=== PATIENT | female | born 1985 | race American Indian/Alaskan Native ===

== ENCOUNTER 2018-12-28 15:24 | Outpatient (CLI) | payer OTHER ==
--- NOTE | 2018-12-28 20:29 | Ultrasound Report ---
PROCEDURE: US OB BPP WO NON-STRESS HISTORY: bpp FINDINGS: Real-time ultrasound of the gravid uterus was performed. Biophysical profile was 8 of 8 Amniotic fluid index is 8.3 cm which is normal. The fetus lies in cephalic lie. cardiac activity is present at 150 beats per minute. IMPRESSION: Biophysical profile 8 of 8 Amniotic fluid index 8.3 cm This document is electronically signed by Rahat Chavez MD., Dec 28 2018 08:27:06 PM ET
--- NOTE | 2018-12-28 20:29 | Ultrasound Report ---
PROCEDURE: US OB LIMITED HISTORY: JUAN PABLO FINDINGS: Real-time ultrasound of the gravid uterus was performed. Biophysical profile was 8 of 8 Amniotic fluid index is 8.3 cm which is normal. The fetus lies in cephalic lie. cardiac activity is present at 150 beats per minute. IMPRESSION: Biophysical profile 8 of 8 Amniotic fluid index 8.3 cm . This document is electronically signed by Rahat Chavez MD., Dec 28 2018 08:27:25 PM ET
== END 2018-12-28 19:54 | disposition home or self-care (01) ==
LOC: TRG 15:24
PROVIDERS: ATTEND Obstetrics & Gynecology
DX: O47.1 False labor at or after 37 completed weeks of gestation (principal); Z3A.39 39 weeks gestation of pregnancy
CPT/HCPCS: 59025; 76815; 76819

== ENCOUNTER 2018-12-29 09:13 | Inpatient (IN) | payer OTHER ==
[2018-12-29] MEDS ORDERED: LACTATED RINGERS 2,000 ML ONE (10:07)
[2018-12-29] MEDS ORDERED: REGLAN IV SCH (10:33)
[2018-12-29] MEDS ORDERED: PEPCID IV SCH (10:33)
[2018-12-29] MEDS ORDERED: BICITRA PO SCH (10:33)
--- NOTE | 2018-12-29 10:42 | History and Physical Report ---
History of Present Illness Date of examination: 12/29/18 Date of admission: 12/29/18 09:13 Chief complaint: scheduled repeat History of present illness: 33 yo at 39+5 weeks here for repeat . OB history include UTI treated in this organism E. Coli. hx of anemia on iron. sickle cell trait. GBS postive. Glucose intolerance diagnosed. Past History Past Medical History: no pertinent history Past Surgical History: section (x1) Family/Genetic History: diabetes, hypertension Social history: single. denies: smoking, alcohol abuse, prescription drug abuse - Obstetrical History Expected Date of Delivery: 12/31/18 Actual Gestation: 39 Week(s) 5 Day(s) : 3 Para: 2 Hx # Term Pregnancies: 2 Number of Pregnancies: 0 Spontaneous Abortions: 0 Induced : 0 Number of Living Children: 2 Medications and Allergies Allergies Allergy/AdvReac Type Severity Reaction Status Date / Time No Known Allergies Allergy Unverified 11/19/18 09:00 Active Meds: Active Medications Citric Acid/Sodium Citrate (Bicitra) 30 ml PO ONCE ONE Stop: 12/29/18 10:34 Famotidine (Pepcid) 20 mg IV ONCE ONE Stop: 12/29/18 10:34 Cefazolin Sodium 3 gm/ Sodium (Chloride) 100 mls @ 100 mls/30 min IV PREOP NR; Protocol Oxytocin/Sodium Chloride (Pitocin/Ns 20 Unit/1000ml Drip) 20 units in 1,000 mls @ 0 mls/hr IV TITR ANDREY Lactated Ringer's (Lactated Ringers) 1,000 mls @ 2,250 mls/hr IV PREOP ANDREY Stop: 12/30/18 11:27 Metoclopramide HCl (Reglan) 10 mg IV ONCE ONE Stop: 12/29/18 10:34 Review of Systems All systems: negative - Vital Signs Vital signs: Vital Signs Pulse BP 99 H 118/55 12/29/18 09:44 12/29/18 09:44 Temp Pulse Resp BP Pulse Ox 93 H 105/51 12/29/18 10:14 12/29/18 10:14 - Physical Exam Breasts: Positive: normal Cardiovascular: Regular rate, Normal S1 Lungs: Positive: Clear to auscultation, Normal air movement Abdomen: Positive: normal appearance, soft, normal bowel sounds. Negative: distention, tenderness, guarding Genitourinary (Female): Positive: normal external genitalia, normal perenium Vagina: Positive: normal moisture Uterus: Positive: normal size, enlarged Anus/Rectum: Positive: normal perianal skin Extremities: Positive: normal Deep Tendon Reflex Grade: Normal +2 - Obstetrical FHR: category 1 Cervical Dilatation: 1 Results All other labs normal. Assessment and Plan A/P IUP 39+ weeks Previouis csec x 1 GBS + Peds notified of findings on US ( assess for VSD) r/b/a of repeat csec reviewed with patient including bleeding, infection, damage to pelvic and non pelvic organs risk of blood transfusion, risk of hysterectomy and Patient verbalized and signed consents and will proceed with repeat csec
[2018-12-29] MEDS ORDERED: ceFAZolin 3 GM in NACL 0.9% 100 ML IV NR (10:45)
[2018-12-29] MEDS ORDERED: PITOCin/NS 20 UNIT/1000ML DRIP 20 UNITS/1,000 ML BAG IV SCH ×2 (11:00→14:00)
--- NOTE | 2018-12-29 11:19 | Anesthesia Day of Surgery ---
Anesthesia Day of Surgery - Day of Surgery Patient Examined: Yes Patient H&P Reviewed: Yes Patient is NPO: Yes Beta Blockers: No Cardiac Clearance: No Pulmonary Clearance: No Kiran's Test: N/A
--- NOTE | 2018-12-29 11:19 | Anesthesia Consultation ---
Anesthesia Consult and Med Hx Date of service: 12/29/18 - Airway Anesthetic Teeth Evaluation: Good ROM Head & Neck: Adequate Mental/Hyoid Distance: Adequate Mallampati Class: Class II Intubation Access Assessment: Probably Good - Pulmonary Exam CTA: Yes - Cardiac Exam Cardiac Exam: RRR - Pre-Operative Health Status ASA Pre-Surgery Classification: ASA2 Proposed Anesthetic Plan: Spinal - Pulmonary Hx Asthma: No - Cardiovascular System Hx Hypertension: No - Central Nervous System Hx Seizures: No Hx Psychiatric Problems: No - Endocrine Hx Renal Disease: No Hx Hypothyroidism: No Hx Hyperthyroidism: No - Hematic Hx Anemia: No Hx Sickle Cell Disease: No - Other Systems Hx Alcohol Use: No
[2018-12-29 11:27] LABS: Basophils % (Auto) 0.3 % (0.0-1.8); Eosinophils % (Auto) 0.6 % (0.0-4.3); Hemoglobin 10.6 gm/dl (10.1-14.3); Lymphocytes # (Auto) 1.7 K/mm3 (1.2-5.4); Mean Corpuscular HGB Conc 33 % (30-34); Mean Corpuscular Volume 79 fl (79-97); Monocytes # (Auto) 0.9 K/mm3 (0.0-0.8); Monocytes % (Auto) 11.4 % (0.0-7.3); Platelet Count 305 K/mm3 (140-440); Red Blood Count 4.05 M/mm3 (3.65-5.03); Red Cell Distribution Width 17.1 % (13.2-15.2)
[2018-12-29] MEDS: LACTATED RINGERS 1,000 ML IV SCH ×2 (11:30→11:32)
[2018-12-29] MEDS ORDERED: SUBLIMAZE ONE (12:06)
[2018-12-29] MEDS ORDERED: ZOFRAN ONE (12:22)
[2018-12-29] MEDS ORDERED: WATER FOR IRRIG STERILE IR ONE (12:30)
[2018-12-29] MEDS ORDERED: NACL 0.9% IR ONE (12:30)
[2018-12-29] MEDS ORDERED: BENADRYL ONE (13:17)
[2018-12-29] MEDS ORDERED: LACTATED RINGERS 1,000 ML ONE (13:17)
[2018-12-29] MEDS ORDERED: ANUCORT-HC PR PRN (13:42)
[2018-12-29] MEDS ORDERED: NARCAN 0.4 MG/1 ML IV PRN ×2 (13:42→13:45)
[2018-12-29] MEDS ORDERED: TORADOL IV PRN (13:42)
[2018-12-29] MEDS ORDERED: PHENERGAN PR PRN ×2 (13:42→13:45)
[2018-12-29] MEDS ORDERED: LANSINOH TP PRN (13:42)
[2018-12-29] MEDS ORDERED: TUCKS PAD TP PRN (13:42)
[2018-12-29] MEDS ORDERED: NORCO 5/325 PO PRN (13:42)
[2018-12-29] MEDS ORDERED: SENOKOT PO PRN (13:42)
[2018-12-29] MEDS ORDERED: MILK OF MAGNESIA PO PRN (13:42)
[2018-12-29] MEDS ORDERED: TYLENOL PO PRN (13:42)
[2018-12-29] MEDS ORDERED: MORPHINE IV PRN (13:42)
[2018-12-29] MEDS ORDERED: ZOFRAN IV PRN ×2 (13:42→13:45)
[2018-12-29] MEDS ORDERED: PHENERGAN PO PRN (13:45)
--- NOTE | 2018-12-29 13:45 | Post Anesthesia Evaluation ---
- Post Anesthesia Evaluation Patient Participated: Yes Airway Patent: Yes Stable Respiratory Function: Yes Nausea/Vomiting: No Temp > 96.8F: Yes Pain Manageable: Yes Adequeate Hydration: Yes Anesthesia Complications: No Block Receding Appropriately: Yes Patient on Ventilator: No
--- NOTE | 2018-12-29 13:48 | Procedure Note ---
OB Delivery Note - Delivery Date of Delivery: 12/29/18 Surgeon: MALLORIE DAY Estimated blood loss: other (700cc) - Section Preop diagnosis: repeat Postop diagnosis: same section procedure: section Disposition: PACU Complications: none Narrative: see op note - Infant A at 1 minute: 8 at 5 minutes: 9 Gender: Female (8 pounds 12 oz)
--- NOTE | 2018-12-29 13:48 | Operative Report ---
Operative Report Operative Report: Date: 12/29/18 PREOPERATIVE DIAGNOSES: 1. Intrauterine at 39 +5 weeks. 2. History of previous section x1. The patient desires a repeat section. POSTOPERATIVE DIAGNOSES: 1. Intrauterine at 39 weeks. 2. History of previous section x1. The patient desires a repeat section. PROCEDURE PERFORMED: Repeat section ANESTHESIA: Spinal. SURGEON: Dr. Rosie Mariscal MD ESTIMATED BLOOD LOSS: 700 mL. COMPLICATIONS: None. FINDINGS: Female in cephalic presentation with anteflexed head, Apgars were 8 at 1 minute and 9 at 5 minutes, , and weight 8 pounds 12 ounces. Normal uterus, tubes, and ovaries were noted. INDICATIONS: The patient is a 33-year-old 3, para 2 female, who presented to repeat section at term. The patient has a history of 1 previous sections and she desires a repeat section, additionally she desires permanent fertilization. The procedure was described to the patient in detail including possible risks of bleeding, infection, injury to surrounding organs, and the possible need for further surgery and informed consent was obtained. PROCEDURE NOTE: The patient was taken to the operating room where spinal anesthesia was administered without difficulty. The patient was prepped and draped in the usual sterile fashion in the dorsal supine position with a leftward tilt. A Pfannenstiel skin incision was made with the scalpel and carried through to the underlying layer of fascia using the Bovie. The fascia was incised in the midline and extended laterally using Wayne scissors. Daniel clamps were used to elevate the superior aspect of the fascial incision, which was elevated, and the underlying rectus muscles were dissected off bluntly and using Wayne scissors. Attention was then turned to the inferior aspect of the fascial incision, which in similar fashion was grasped with Daniel clamps, elevated, and the underlying rectus muscles were dissected off bluntly and using the Bovie. The rectus muscles were dissected in the midline. The peritoneum was identified and entered using Metzenbaum scissors; this incision was extended superiorly and inferiorly with good visualization of the bladder. The bladder blade was inserted. The vesicouterine peritoneum was identified and entered sharply using Metzenbaum scissors. This incision was extended laterally and the bladder flap was created digitally. The bladder blade was reinserted. The lower uterine segment was incised in a transverse fashion using the scalpel and extended using bandage scissors as well as manual traction. Clear fluid was noted. The was subsequently delivered using a Destinee vacuum due to anteflexed head and difficulty in delivering the 's head without the Destinee. The nose and mouth were bulb suctioned. The cord was clamped and cut. The was subsequently handed to the awaiting nursery nurse. The placenta was delivered spontaneously intact with a three-vessel cord noted. The uterus was exteriorized and cleared of all clots and debris. The uterine incision was repaired in 2 layers using 0 chromic sutures. Hemostasis was visualized., surgicell, tissel used for excellent hemostasis.. The uterus was returned to the abdomen, . The uterine incision was reexamined and it was noted to be hemostatic. The pelvis was copiously irrigated. The rectus muscles were reapproximated in the midline using 3-0 Vicryl. The fascia was closed with 0 Vicryl suture, the subcutaneous layer was closed with 3-0 plain gut, and the skin was closed with Charlie needle. . Sponge, lap, and instrument counts were correct x2. The patient was stable at the completion of the procedure and was subsequently transferred to the recovery room in stable condition.
[2018-12-29] MEDS ORDERED: SODIUM CHLORIDE FLUSH SYRINGE 10 ML IV SCH ×2 (14:00)
[2018-12-29] MEDS ORDERED: MORPHINE ONE (14:54)
[2018-12-29] MEDS: D5LR 1,000 ML IV SCH ×2 (15:45→22:06)
[2018-12-29] MEDS: TORADOL IV PRN ×2 (16:02→22:01)
[2018-12-29] MEDS: MORPHINE IV PRN (20:59)
[2018-12-30 00:58] LABS: Hematocrit 29.2 % (30.3-42.9); Hemoglobin 9.8 gm/dl (10.1-14.3)
[2018-12-30] MEDS: MORPHINE IV PRN (02:06)
[2018-12-30] MEDS: TORADOL IV PRN ×2 (04:10→15:26)
[2018-12-30] MEDS ORDERED: BOOSTRIX IM ONE (06:00)
[2018-12-30] MEDS: PERCOCET 5/325 PO PRN ×3 (06:21→20:07)
[2018-12-30] MEDS: D5LR 1,000 ML IV SCH (07:35)
--- NOTE | 2018-12-30 08:44 | Progress Note ---
Assessment and Plan A: Post op day 1 s/p RLTCS Vital signs and labs stable No void or flatus, +BS Desires to breast feed P: Plan to start ambulating more and sit on toilet to try to void Start normal diet at noon Likely discharge on POD3 Work with nurse on breast feeding Subjective - Subjective Date of service: 12/30/18 Principal diagnosis: Post op day 1 Patient reports: appetite normal, pain well controlled, ambulating normally [place]: doing well (Pt has not yet voided, is not passing flatus. ) Objective - Vital Signs Latest vital signs: Vital Signs Temp Pulse Resp BP BP Pulse Ox 12/30/18 00:00 98.7 F 72 18 120/69 12/29/18 22:01 20 12/29/18 21:07 98.6 F 18 134/63 12/29/18 20:59 20 12/29/18 17:23 16 12/29/18 16:28 97.9 F 70 18 133/63 12/29/18 16:02 18 12/29/18 15:15 97.6 F 81 18 145/71 99 12/29/18 15:00 97.8 F 73 33 H 134/40 100 12/29/18 14:45 72 24 145/58 100 12/29/18 14:30 75 18 106/55 100 12/29/18 14:15 66 20 133/46 99 12/29/18 14:00 73 18 108/42 99 12/29/18 13:53 70 20 115/42 99 12/29/18 13:48 75 15 104/36 99 12/29/18 13:43 97.6 F 73 28 H 104/36 99 12/29/18 13:38 97.6 F 74 30 H 101/33 99 12/29/18 11:15 90 105/52 12/29/18 10:44 100 H 130/57 12/29/18 10:14 93 H 105/51 12/29/18 09:45 98.3 F 18 12/29/18 09:44 99 H 118/55 Intake and Output 12/29/18 12/30/18 12/30/18 23:59 07:59 15:59 Intake Total 2228.75 1000 Output Total 1700 Balance 528.75 1000 Intake: IV 793.75 1000 D5lr 1,000 ml @ 125 mls/ 793.75 1000 hr IV DIRECT ANDREY Rx#: [id number] Oral 1060 Other 375 Output: Urine 1700 Indwelling Catheter 1700 Other: Total, Intake Amount 200 Total, Output Amount 800 - Exam Breasts: Present: normal Cardiovascular: Present: Regular rate, Normal S1, Normal S2, No murmurs Lungs: Present: Clear to auscultation, Normal air movement Abdomen: Present: normal appearance, soft, normal bowel sounds Uterus: Present: normal, firm, fundal height at umbilicus Extremities: Present: normal Incision: Present: normal, dry, intact - Labs Labs: Abnormal lab results 12/29/18 12/30/18 Range/Units 11:00 00:40 Hgb 9.8 L (10.1-14.3) gm/dl Hct 29.2 L (30.3-42.9) % MCH 26 L (28-32) pg RDW 17.1 H (13.2-15.2) % [place] % (Auto) 11.4 H (0.0-7.3) % [place] # 0.9 H (0.0-0.8) K/mm3
[2018-12-30] MEDS: MYLICON PO PRN ×2 (12:08→20:22)
[2018-12-30] MEDS: PRENATAL VITAMIN PO SCH (12:08)
[2018-12-30] MEDS ORDERED: M-M-R II VACCINE SUB-Q ONE (13:43)
[2018-12-30] MEDS: FEOSOL PO SCH (15:28)
--- NOTE | 2018-12-30 20:51 | XRay Report ---
PROCEDURE: XR CHEST ROUTINE 2V TECHNIQUE: PA and lateral chest radiographs were obtained. HISTORY: increased resp. COMPARISONS: None. FINDINGS: Heart: Normal. Mediastinum/Vessels: Normal. Lungs/Pleural space: Normal. Bony thorax: No acute osseous abnormality. IMPRESSION: Normal examination. This document is electronically signed by Frankie Rendon MD., Dec 30 2018 08:49:54 PM ET
[2018-12-31] MEDS: PERCOCET 5/325 PO PRN ×4 (02:26→17:43)
[2018-12-31] MEDS: IBUPROFEN PO PRN ×2 (04:51→21:18)
[2018-12-31] MEDS: MORPHINE IV PRN (05:36)
[2018-12-31] MEDS ORDERED: PROVENTIL IH PRN (08:00)
--- NOTE | 2018-12-31 08:45 | Progress Note ---
Assessment and Plan A: POD#2 s/p repeat section Morbid Obesity (BMI in computer incorrect) Delayed return of bowel function P: Milk of magnesia Q4H until bowel movement Change pain medication regimen Monitor clinically Subjective - Subjective Date of service: 12/31/18 Principal diagnosis: POD#2 s/p repeat section, Interval history: Pt has not passed flatus. She has a cough and reports abdominal pain after coughing. Minimal ambulation. Patient reports: voiding normally, pain poorly controlled, ambulating normally (minimally ), no flatus, no bowel movement : doing well Objective - Vital Signs Latest vital signs: Vital Signs Temp Pulse Resp BP BP Pulse Ox 12/31/18 06:38 98.8 F 88 18 117/56 98 12/31/18 02:26 18 12/31/18 00:00 98.7 F 78 18 119/68 12/30/18 16:17 98.1 F 88 28 H 114/56 97 12/30/18 12:07 98.0 F 97 H 22 121/70 99 12/30/18 09:10 20 Intake and Output 12/30/18 12/31/18 12/31/18 22:59 06:59 14:59 Intake Total 360 300 Balance 360 300 Intake: Oral 360 Intake, Free Water 300 Other: Total, Intake Amount 360 # Voids Void 1 - Exam Breasts: Present: deferred Cardiovascular: Present: Regular rate Lungs: Present: Clear to auscultation Abdomen: Present: soft (obese), distention (moderate), abnormal bowel sounds (hypoactive ) Uterus: Present: fundal height below umbilicus Extremities: Present: edema (trace) Incision: Present: intact
[2018-12-31] MEDS: FEOSOL PO SCH (09:29)
[2018-12-31] MEDS: MILK OF MAGNESIA PO SCH ×4 (09:29→21:18)
[2018-12-31] MEDS: PRENATAL VITAMIN PO SCH (09:29)
[2018-12-31] MEDS: MYLICON PO PRN (21:18)
[2019-01-01] MEDS: PERCOCET 5/325 PO PRN ×2 (00:47→09:17)
[2019-01-01] MEDS: MILK OF MAGNESIA PO SCH ×2 (02:00→09:16)
--- NOTE | 2019-01-01 08:09 | Progress Note ---
Assessment and Plan - Patient Problems (1) Previous delivery, delivered Current Visit: Yes Status: Acute Plan to address problem: patient doing better discharge home Subjective - Subjective Date of service: 01/01/19 Principal diagnosis: POD#3 s/p repeat section, Interval history: Patient reports feeling better today. Tolerating regular diet and voiding without difficulty. Patient reports: appetite normal, voiding normally, pain well controlled : doing well Objective - Vital Signs Latest vital signs: Vital Signs Temp Pulse Resp BP Pulse Ox 12/31/18 21:14 98.6 F 90 18 139/70 99 12/31/18 16:51 97.6 F 82 20 125/70 100 12/31/18 08:23 97.5 F L 20 107/66 Intake and Output 12/31/18 01/01/19 01/01/19 22:59 06:59 14:59 Other: # Bowel Movements 1 - Exam Abdomen: Present: normal appearance Incision: Present: normal
--- NOTE | 2019-01-01 08:12 | Discharge Summary ---
Providers - Providers Date of Admission: 12/29/18 09:13 Date of discharge: 01/01/19 Attending physician: SIDNEY AGEE Primary care physician: SIDNEY AGEE Hospitalization Reason for admission: section Delivery: Procedure: section, repeat low transverse Discharge diagnosis: IUP at term delivered baby: female Hospital course: Patient admitted for repeat delivery. See op note. Postop unremarkable. Condition at discharge: Good Disposition: DC-01 TO HOME OR SELFCARE - Discharge Diagnoses (1) Previous delivery, delivered Status: Acute Plan - Discharge Medications Prescriptions: Ibuprofen [Motrin] 800 mg PO Q8HR PRN #60 tablet PRN Reason: Pain, Moderate (4-6) Oxycodone HCl/Acetaminophen [Percocet 7.5/325 mg] 1 each PO Q6HR PRN #30 tablet PRN Reason: Pain - Provider Discharge Summary Activity: no sex for 6 weeks, no heavy lifting 4 weeks, no strenuous exercise Diet: routine Instructions: routine Additional instructions: [] Smoking cessation referral if applicable(refer to patient education folder for contact #) [] Refer to [facility] Booklet Call your doctor immediately for: * Fever > 100.5 * Heavy vaginal bleeding ( >1 pad per hour) * Severe persistent headache * Shortness of breath * Reddened, hot, painful area to leg or breast * Drainage or odor from incision. * Keep incision clean and dry at all times and follow doctor's instructions regarding bathing/showering schedule followup in 2 weeks - Follow up plan
[2019-01-01] MEDS: PRENATAL VITAMIN PO SCH (09:17)
[2019-01-01] MEDS: FEOSOL PO SCH (09:17)
[2019-01-01] MEDS: IBUPROFEN PO PRN (09:17)
[2019-01-01 13:29] VITALS: BP 117/46
== END 2019-01-01 13:10 | disposition home or self-care (01) | DRG 765 ==
LOC: APU 09:13 → OB 14:15
PROVIDERS: ADMIT Obstetrics & Gynecology; ATTEND Obstetrics & Gynecology
PROC: 10D00Z1 Extraction of Products of Conception, Low, Open Approach (ICD-10-PCS; principal; 2018-12-29)
PROC: 3E0234Z Introduction of Serum, Toxoid and Vaccine into Muscle, Percutaneous Approach (ICD-10-PCS; 2018-12-30)
DX: O34.211 Maternal care for low transverse scar from previous cesarean delivery (principal); D62 Acute posthemorrhagic anemia; O99.824 Streptococcus B carrier state complicating childbirth; O99.214 Obesity complicating childbirth; E66.01 Morbid (severe) obesity due to excess calories; Z3A.39 39 weeks gestation of pregnancy; Z37.0 Single live birth; O90.81 Anemia of the puerperium; Z23 Encounter for immunization; Z83.3 Family history of diabetes mellitus; Z82.49 Family history of ischemic heart disease and other diseases of the circulatory system
CPT/HCPCS: 36415; 59025; 71046; 76815; 76819; 85014; 85018; 85025; 86850; 86900; 86901; G0378; J0690; J1200; J1885; J2270; J2405; J2590; J3010; J7120; J7121